=== PATIENT | female | born 1940 | race Caucasian/White ===

== ENCOUNTER 2018-12-22 08:27 | Day surgery (SDC) | payer MEDICARE, BC, SELFPAY ==
--- NOTE | 2018-12-21 18:54 | W.PIPPEYE ---
History of Present Illness Chief Complaint: Progressive decreased vision, right eye Narrative: The patient is a 78-year old lady who presented with complaints of progressive decreased vision in both eyes at both distance and near, particularly at near. She has significant difficulty with fine print. On examination she was noted to have moderate bilateral nuclear and posterior subcapsular cataract with cortical cataract in the left eye as well. The option of cataract surgery was offered to the patient and she felt she was symptomatic enough that she wished to proceed. NOTE: The Chief Complaint, HPI, Past Medical History, Past Surgical History, Family History, Social History, Medications, and complete Ophthalmic Exam with detailed Assessment and Plan have already been documented in the patient's outpatient ophthalmic record and are not covered again in detail here. FORMERLY [facility] Medical History Cortical cataract of right eye (Acute) Nuclear sclerotic cataract of right eye (Acute) Posterior subcapsular age-related cataract, right eye (Acute) Social History Smoking and Tabacco status: Former Tobacco Use Meds Home Medications Medication Instructions Recorded Confirmed Type acetaminophen [Tylenol] 650 mg PO TID PRN 12/19/18 12/19/18 History ascorbic acid (vitamin C) [Vitamin 500 mg PO DAILY 12/19/18 12/19/18 History C] aspirin 325 mg PO DAILY 12/19/18 12/19/18 History atorvastatin 20 mg PO DAILY 12/19/18 12/19/18 History calcium carbonate-vitamin D3 1 tab PO BID 12/19/18 12/19/18 History [Calcium 600 with Vitamin D3] cholecalciferol (vitamin D3) 2 tab PO DAILY 12/19/18 12/19/18 History [Vitamin D3] citalopram 20 mg PO HS 12/19/18 12/19/18 History cyanocobalamin (vitamin B-12) 500 mcg PO .3X A WEEK 12/19/18 12/19/18 History [Vitamin B-12] desloratadine [Clarinex] 5 mg PO DAILY 12/19/18 12/19/18 History donepezil [Aricept] 10 mg PO DAILY 12/19/18 12/19/18 History fluticasone propionate [Flovent 1 puff INHALATION BID 12/19/18 12/19/18 History HFA] lisinopril 10 mg PO DAILY 12/19/18 12/19/18 History lysine [L-Lysine] 500 mg PO DAILY 12/19/18 12/19/18 History nitroglycerin [Nitrostat] 1 tab SUBLINGUAL DIRECTED PRN 12/19/18 12/19/18 History omeprazole 20 mg PO DAILY 12/19/18 12/19/18 History psyllium husk [Metamucil] 1 tsp PO DAILY 12/19/18 12/19/18 History pyridoxine (vitamin B6) [Vitamin 100 mg PO . 3X A WEEK 12/19/18 12/19/18 History B-6] thiamine HCl (vitamin B1) [Vitamin 100 mg PO .3X A WEEK 12/19/18 12/19/18 History B-1] vitamin E 200 unit PO DAILY 12/19/18 12/19/18 History zinc 50 mg PO DAILY 12/19/18 12/19/18 History Allergies Allergy/AdvReac Type Severity Reaction Status Date / Time No Known Allergies Allergy Unverified 12/19/18 10:57 Exam OCULAR EXAM:: Most recent ocular examination revealed corrected visual acuity of 20/25 OD, 20/20 OS. Intraocular pressure is 15 OD, 13 OS. Pupils equal, round, and reactive without afferent pupillary defect slit-lamp examination is significant for pupils dilating to 4 mm OU. 2+ nuclear with 1+ cortical haze OU and 2+ posterior subcapsular cataract OU. Dilated funduscopic examination shows disc cupping of 0.45 OD 0.5 OS with normal vessels. There are some macular pigmentary changes in the right eye with small branch vein occlusion adjacent to the foveal center in the right eye. Rare drusen are present in the left eye. Peripheral retina and vitreous are normal. BRIGHTNESS ACUITY TESTING (BAT):: Brightness acuity testing of the right eye off is 20/25. Low is 20/40. Medium is 20/40. High is 20/40. Assessment and Plan (1) Posterior subcapsular age-related cataract, right eye: Current visit: No Status: Acute Assessment: Visually significant cataract, right eye. Plan: Cataract extraction with intraocular lens implantation, right eye (2) Nuclear sclerotic cataract of right eye: Current visit: No Status: Acute Assessment: Visually significant cataract, right eye. Plan: Cataract extraction with intraocular lens implantation, right eye (3) Cortical cataract of right eye: Current visit: No Status: Acute Assessment: Visually significant cataract, right eye. Plan: Cataract extraction with intraocular lens implantation, right eye Note: NOTE:: The details of the planned surgery, including the risks, indications,limitations,expectations,outcome and possible complications were explained to the patient. The patient understands the complications including, but not limited to: infection, hemorrhage, posterior dislocation of the lens or nuclear fragments which may require the intervention of a vitreoretinal surgeon, possible loss of the eye, or from anesthetic complications. The patient has been made aware of the option of not having surgery, that vision following surgery may not be equal to that prior to surgery, and that the planned surgery may not achieve the intended results. Following this discussion, which the patient appeared to understand, the patient wishes to proceed with cataract surgery with lens implantation of the affected eye to improve and maximize vision.
--- NOTE | 2018-12-22 07:10 | ROE_ITS ---
Date of service: 12/22/18 Time of Service: 08:50 Operative Note PRE-OP DIAGNOSIS: Cataract, right eye, with poorly dilating pupil POST-OP DIAGNOSIS: same PROCEDURE: 1. Cataract extraction by phacoemulsification with intraocular lens implantation, right eye, with pupillary expansion device SURGEON: Abdirahman Bonilla ANESTHESIA: MAC (with local sub-tenon's anesthetic injection) PATHOLOGY: none sent COMPLICATIONS: None Patient was transported to: same day Patient's condition: stable Implants: [employer] / [employer] Tecnis [id number] Indications: Progressive decreased vision due to cataract, right eye, with poorly dilating pupil Procedure Description: CATARACT SURGERY OPERATIVE REPORT PREOPERATIVE DIAGNOSIS: 1. Nuclear/cortical/posterior subcapsular cataract, right eye 2. Poorly dilating pupil, right eye POSTOPERATIVE DIAGNOSIS: Same OPERATION: 1. Cataract extraction using phacoemulsification with posterior chamber intraocular lens implant, right eye. 2. Pupillary dilation and iris stabilization using Malyugin Ring IOL: IOL [place] Machine Operator/Model: [employer] / DEJAH Tecnis [id number] IOL Power: + 18.50 diopters IOL Serial Number: [id number] Optic Diameter: 6.0mm Haptic/Overall Diameter: 13.0mm PHACO INFO: Joe CrownPeakurion Vision System with OZil and Active Fluidics Cumulative Dispersed Energy (CDE): 10.21 seconds SURGEON: Abdirahman Bonilla MD, SHELDON ANESTHESIA: Monitored Anesthesia Care (MAC), with local sub-tenon's anesthetic infiltration COMPLICATIONS: None SPECIMENS: None INDICATIONS FOR PROCEDURE: The patient is a 78-year old lady with history of diminished visual acuity in her right eye. She is noted to have a significant nuclear cortical and posterior subcapsular cataract in the right eye. The option of cataract surgery was offered to the patient and she wished to proceed. PROCEDURE: The correct surgical eye was identified and marked as the right eye and the pupil was dilated in the preoperative area using mydriatics and cycloplegics. The dilated pupil size was 4.5 mm. No oral sedation was given. The patient was brought to the operating room where cardiopulmonary monitoring was instituted and surgical time-out was performed, confirming the correct operative eye and IOL power. Topical anesthesia was administered and ophthalmic povidone-iodine 5% was instilled into the conjunctival fornices. Lidocaine gel was applied to the cornea and the carmen-ocular area was prepped with Betadine 10% solution and draped in the usual sterile fashion for intraocular surgery, including an aperture drape. A Tegaderm transparent film dressing was cut in half and used to cover the lashes and lid margins. Care was taken to sequester the lashes and lid margins under the Tegaderm dressing. A lid speculum was placed between the lids of the operative eye and the Lizette-Wendi operating microscope was maneuvered into position. Elfego scissors were then used to make a conjunctival buttonhole approximately 6mm posterior to the limbus in the inferonasal quadrant. Blunt dissection was carried out to expose bare sclera, and a blunt-tipped sub-tenon?s anesthesia cannula was introduced and passed posteriorly along the globe where non- preserved plain lidocaine was injected into posterior sub-Tenon?s space. A sideport knife was used to make a paracentesis port inferiortemporally. The anterior chamber was filled with Healon GV. A 2.4mm keratome knife was used to create a half-thickness groove at the limbus and then to construct a three-plane near-clear corneal tunnel extending 2.0mm into clear cornea superiortemporally. A 7.0 mm Malyugin Ring was then inserted into the pupillary space and engaged with the Kuglen hook. A flap was raised on the anterior capsule and capsulorhexis forceps were used to complete a continuous curvilinear capsulorhexis of 4.5 mm. There was a significant cortical haze inferiorly. The zonules were noted to be quite loose. Balanced salt solution was then used to perform cortical cleaving hydrodissection and nuclear hydrodelineation until the lens could be freely rotated within the capsular bag. The lens nucleus was then disassembled and removed within the capsular bag and iris plane using phacoemulsification. Residual cortical material was removed using the 45-degree angled silicone I/A tip with 0.3mm port. The posterior capsule was carefully polished to remove as much residual lens epithelial cells as safely possible. The capsular bag was then inflated and the anterior chamber deepened with viscoelastic. The lens implant described above was inserted into the capsular bag using the DEJAH [place] Injector. A Kuglen hook was used to dial the IOL into position. The Malyugin Ring was removed in the reverse order of its insertion. Residual viscoelastic was then removed first from posterior to the IOL, then from the anterior chamber using the I/A handpiece. The lens implant was noted to center nicely within the capsular bag. The incisions were stromally hydrated, and the anterior chamber was reformed using BSS. Then 0.4cc of moxifloxacin 1.5mg/ml were injected into the capsular bag and anterior chamber. The incisions were checked with a Weck spear and found to be secure. Several drops of ophthalmic povidone-iodine 5% were then applied to the eye followed by two drops of Imprimis combination moxifloxacin/dexamethasone solution. The drapes were removed and a clear plastic protective eye shield was placed over the eye. The patient was then returned to Same Day Surgery in stable condition.
--- NOTE | 2018-12-22 07:10 | PDOC.DSDIS_ITS ---
Discharge Plan Disposition Patient Disposition: HOME Condition: Good Discharge Details Attending Provider: Abdirahman Bonilla Primary Care Provider: Dory Renee Home Meds and New Rx's Prescriptions: No Action acetaminophen [Tylenol] 325 mg Tablet 650 mg PO TID PRNRF: 0 atorvastatin 20 mg Tablet 20 mg PO DAILY RF: 0 aspirin 325 mg Tablet 325 mg PO DAILY RF: 0 donepezil [Aricept] 10 mg Tablet 10 mg PO DAILY RF: 0 thiamine HCl (vitamin B1) [Vitamin B-1] 100 mg Tablet 100 mg PO .3X A WEEK RF: 0 citalopram 20 mg Tablet 20 mg PO HS RF: 0 cyanocobalamin (vitamin B-12) [Vitamin B-12] 500 mcg Tablet 500 mcg PO .3X A WEEK RF: 0 desloratadine [Clarinex] 5 mg Tablet 5 mg PO DAILY RF: 0 lisinopril 10 mg Tablet 10 mg PO DAILY RF: 0 nitroglycerin [Nitrostat] 0.4 mg Tablet, Sublingual 1 tab Sublingual DIRECTED PRNRF: 0 omeprazole 20 mg Capsule,Delayed Release(Dr/Ec) 20 mg PO DAILY RF: 0 pyridoxine (vitamin B6) [Vitamin B-6] 100 mg Tablet 100 mg PO . 3X A WEEK RF: 0 Flovent HFA 110 mcg/actuation Hfa Aerosol Inhaler 1 puff INHALATION BID RF: 0 cholecalciferol (vitamin D3) [Vitamin D3] 1,000 unit Capsule 2 tab PO DAILY RF: 0 calcium carbonate-vitamin D3 [Calcium 600 with Vitamin D3] 600 mg(1,500mg) - 400 unit Capsule 1 tab PO BID RF: 0 Metamucil 3.4 gram/5.4 gram Powder 1 tsp PO DAILY RF: 0 vitamin E 200 unit Capsule 200 unit PO DAILY RF: 0 ascorbic acid (vitamin C) [Vitamin C] 500 mg Tablet 500 mg PO DAILY RF: 0 zinc 50 mg Tablet 50 mg PO DAILY RF: 0 lysine [L-Lysine] 500 mg Tablet 500 mg PO DAILY RF: 0 Discharge Instructions Stand Alone Forms: Post-op Topical Cataract, Press Ganey (DSU) Discharge Orders Discharge Orders: Discharge Order (Routine); Ordered 12/22/18 Ordered By: Abdirahman Bonilla DS: Diagnosis Discharge Diagnosis (1) Status post cataract extraction and insertion of intraocular lens of right eye: Status: Chronic
[2018-12-22 07:33] VITALS: BP 155/73; PULSE 60; RESP 16; TEMP 36; O2SAT 100
[2018-12-22] MEDS: Tetracaine 0.5% 4 ML BTL OD ×4 (07:35→08:15)
[2018-12-22] MEDS: Tropicam./Phenyleph. (1/2.5%) 5 ML BTL OD ×3 (07:35→07:42)
[2018-12-22] MEDS: Lidocaine 2% Jelly 6 ML SYR (08:15)
[2018-12-22] MEDS: Lidocaine 1% Pres-Free 5 ML VIAL (08:15)
[2018-12-22] MEDS: Povidone-Iodine Ophth 30 ML BTL (08:15)
[2018-12-22] MEDS: Balanced Salt Soln.-PLUS 500 ML BAG (08:22)
== END 2018-12-22 09:28 | disposition home or self-care (01) ==
LOC: SUR 08:27
PROVIDERS: Visit Provider Ophthalmology
PROC: (CPT 66982; principal; 2018-12-22 08:45)
DX: H25.811 Combined forms of age-related cataract, right eye (principal); H57.09 Other anomalies of pupillary function; I10 Essential (primary) hypertension; K21.9 Gastro-esophageal reflux disease without esophagitis
CPT/HCPCS: 66982; V2632

== ENCOUNTER 2019-01-05 07:40 | Day surgery (SDC) | payer MEDICARE, BC, SELFPAY ==
--- NOTE | 2019-01-04 12:17 | POEE_ITS ---
History of Present Illness Chief Complaint: Progressive decreased vision, left eye Narrative: The patient is a 78-year-old lady with history of progressive decreased vision at near in both eyes. She was noted to have moderate nuclear cortical and posterior subcapsular cataract of the right eye with nuclear and co rtical cataract of the left eye. She was significantly symptomatic that she desired cataract surgery which was performed OD on 12/22/2018. Postoperatively she has regained uncorrected vision of 20/20 in the right eye. She now presents for cataract surgery in the left eye. NOTE: The Chief Complaint, HPI, Past Medical History, Past Surgical History, Family History, Social History, Medications, and complete Ophthalmic Exam with detailed Assessment and Plan have already been documented in the patient's outpatient ophthalmic record and are not covered again in detail here. PFSH Medical History Nuclear sclerotic cataract of left eye (Acute) Cortical cataract of left eye (Acute) Cortical cataract of right eye (Resolved) Nuclear sclerotic cataract of right eye (Resolved) Posterior subcapsular age-related cataract, right eye (Resolved) Surgical History Status post cataract extraction and insertion of intraocular lens of right eye (Chronic 12/22/18) Social History Smoking/Tobacco Use Status: Former Tobacco Use Drug use: Never Meds Home Medications Medication Instructions Recorded Confirmed Type acetaminophen [Tylenol] 650 mg PO TID PRN 12/19/18 12/19/18 History ascorbic acid (vitamin C) [Vitamin 500 mg PO DAILY 12/19/18 12/22/18 History C] aspirin 325 mg PO DAILY 12/19/18 12/22/18 History atorvastatin 20 mg PO DAILY 12/19/18 12/22/18 History calcium carbonate-vitamin D3 1 tab PO BID 12/19/18 12/22/18 History [Calcium 600 with Vitamin D3] cholecalciferol (vitamin D3) 2 tab PO DAILY 12/19/18 12/22/18 History [Vitamin D3] citalopram 20 mg PO HS 12/19/18 12/22/18 History cyanocobalamin (vitamin B-12) 500 mcg PO .3X A WEEK 12/19/18 12/22/18 History [Vitamin B-12] desloratadine [Clarinex] 5 mg PO DAILY 12/19/18 12/22/18 History donepezil [Aricept] 10 mg PO DAILY 12/19/18 12/22/18 History fluticasone propionate [Flovent 1 puff INHALATION BID 12/19/18 12/22/18 History HFA] lisinopril 10 mg PO DAILY 12/19/18 12/22/18 History lysine [L-Lysine] 500 mg PO DAILY 12/19/18 12/22/18 History nitroglycerin [Nitrostat] 1 tab SUBLINGUAL DIRECTED PRN 12/19/18 12/22/18 History omeprazole 20 mg PO DAILY 12/19/18 12/22/18 History psyllium husk [Metamucil] 1 tsp PO DAILY 12/19/18 12/22/18 History pyridoxine (vitamin B6) [Vitamin 100 mg PO . 3X A WEEK 12/19/18 12/22/18 History B-6] thiamine HCl (vitamin B1) [Vitamin 100 mg PO .3X A WEEK 12/19/18 12/22/18 History B-1] vitamin E 200 unit PO DAILY 12/19/18 12/22/18 History zinc 50 mg PO DAILY 12/19/18 12/22/18 History Allergies Allergy/AdvReac Type Severity Reaction Status Date / Time erythromycin base Allergy Verified 12/22/18 07:21 Penicillins Allergy Verified 12/22/18 07:21 tetracycline Allergy Verified 12/22/18 07:21 Exam OCULAR EXAM:: Most recent ocular examination is significant for uncorrected vision of 20/20 OD, corrected vision of 20/30 OS. Intraocular pressure is 16 OD, 13 OS extraocular motility is normal. Pupils equal, round, and reactive without afferent pupillary defect slit-lamp examination his significant for a well-positioned PCIOL OD with clear posterior capsule. A 2+ nuclear and 1+ cortical is present in the left eye. Dilated funduscopic examination shows disc cupping of 0.45 OD 0.5 OS with normal vessels. There is some RPE changes in the right macula, and drusen in the left macula. Peripheral retina and vitreous is normal OU. BRIGHTNESS ACUITY TESTING (BAT):: Brightness acuity testing of the left eye off is 20/25. Low, medium, and high is 20/40. Assessment and Plan (1) Cortical cataract of left eye: Current visit: No Status: Acute Assessment: Visually significant cataract, left eye. Plan: Cataract extraction with intraocular lens implantation, left eye (2) Nuclear sclerotic cataract of left eye: Current visit: No Status: Acute Assessment: Visually significant cataract, left eye. Plan: Cataract extraction with intraocular lens implantation, left eye Note: NOTE:: The details of the planned surgery, including the risks, indications,limitations,expectations,outcome and possible complications were explained to the patient. The patient understands the complications including, but not limited to: infection, hemorrhage, posterior dislocation of the lens or nuclear fragments which may require the intervention of a vitreoretinal surgeon, possible loss of the eye, or from anesthetic complications. The patient has been made aware of the option of not having surgery, that vision following surgery may not be equal to that prior to surgery, and that the planned surgery may not achieve the intended results. Following this discussion, which the patient appeared to understand, the patient wishes to proceed with cataract surgery with lens implantation of the affected eye to improve and maximize vision.
[2019-01-05 07:57] VITALS: BP 151/81; PULSE 60; RESP 16; TEMP 36.5; O2SAT 98
[2019-01-05] MEDS: Tropicam./Phenyleph. (1/2.5%) 5 ML BTL OS ×3 (08:07→08:20)
[2019-01-05] MEDS: Tetracaine 0.5% 4 ML BTL OS ×4 (08:07→09:40)
[2019-01-05] MEDS: Povidone-Iodine Ophth 30 ML BTL (09:40)
[2019-01-05] MEDS: Balanced Salt Soln.-PLUS 500 ML BAG (09:40)
[2019-01-05] MEDS: Lidocaine 1% Pres-Free 5 ML VIAL (09:40)
[2019-01-05] MEDS: Lidocaine 2% Jelly 6 ML SYR (09:40)
--- NOTE | 2019-01-05 10:08 | PDOC.DSDIS_ITS ---
Discharge Plan Disposition Patient Disposition: HOME Condition: Stable Discharge Details Attending Provider: Abdirahman Bonilla Primary Care Provider: Dory Renee Home Meds and New Rx's Prescriptions: No Action acetaminophen [Tylenol] 325 mg Tablet 650 mg PO TID PRNRF: 0 atorvastatin 20 mg Tablet 20 mg PO DAILY RF: 0 aspirin 325 mg Tablet 325 mg PO DAILY RF: 0 donepezil [Aricept] 10 mg Tablet 10 mg PO DAILY RF: 0 thiamine HCl (vitamin B1) [Vitamin B-1] 100 mg Tablet 100 mg PO .3X A WEEK RF: 0 citalopram 20 mg Tablet 20 mg PO HS RF: 0 cyanocobalamin (vitamin B-12) [Vitamin B-12] 500 mcg Tablet 500 mcg PO .3X A WEEK RF: 0 desloratadine [Clarinex] 5 mg Tablet 5 mg PO DAILY RF: 0 lisinopril 10 mg Tablet 10 mg PO DAILY RF: 0 nitroglycerin [Nitrostat] 0.4 mg Tablet, Sublingual 1 tab Sublingual DIRECTED PRNRF: 0 omeprazole 20 mg Capsule,Delayed Release(Dr/Ec) 20 mg PO DAILY RF: 0 pyridoxine (vitamin B6) [Vitamin B-6] 100 mg Tablet 100 mg PO . 3X A WEEK RF: 0 Flovent HFA 110 mcg/actuation Hfa Aerosol Inhaler 1 puff INHALATION BID RF: 0 cholecalciferol (vitamin D3) [Vitamin D3] 1,000 unit Capsule 2 tab PO DAILY RF: 0 calcium carbonate-vitamin D3 [Calcium 600 with Vitamin D3] 600 mg(1,500mg) - 400 unit Capsule 1 tab PO BID RF: 0 Metamucil 3.4 gram/5.4 gram Powder 1 tsp PO DAILY RF: 0 vitamin E 200 unit Capsule 200 unit PO DAILY RF: 0 ascorbic acid (vitamin C) [Vitamin C] 500 mg Tablet 500 mg PO DAILY RF: 0 zinc 50 mg Tablet 50 mg PO DAILY RF: 0 lysine [L-Lysine] 500 mg Tablet 500 mg PO DAILY RF: 0 Discharge Instructions Stand Alone Forms: Post-op Topical Cataract, Jorge Davidey (DSU) Discharge Orders Discharge Orders: Discharge Order (Routine); Ordered 01/05/19 Ordered By: Abdirahman Bonilla DS: Diagnosis Discharge Diagnosis (1) Cortical cataract of left eye: Status: Resolved (2) Nuclear sclerotic cataract of left eye: Status: Resolved (3) Status post cataract extraction and insertion of intraocular lens of left eye: Status: Chronic
--- NOTE | 2019-01-05 10:09 | W.PM.OP ---
Date of service: 01/05/19 Time of Service: 10:09 Operative Note PRE-OP DIAGNOSIS: Cataract, left eye POST-OP DIAGNOSIS: same PROCEDURE: Cataract extraction using phacoemulsification with intraocular lens implant, left eye SURGEON: Abdirahman Bonilla ANESTHESIA: MAC and local (sub-tenon's anesthetic infiltration) PATHOLOGY: none sent COMPLICATIONS: None Patient was transported to: same day Patient's condition: stable Implants: [employer] / [employer] Tecnis ZCB00 Indications: Progressive decreased vision due to cataract, left eye Procedure Description: CATARACT SURGERY OPERATIVE REPORT PREOPERATIVE DIAGNOSIS: Nuclear/cortical cataract, left eye POSTOPERATIVE DIAGNOSIS: Same OPERATION: Cataract extraction using phacoemulsification with posterior chamber intraocular lens implant, left eye. 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 She has already undergone cataract surgery in her right eye on 12/22/2018 and is doing well postoperatively. She now presents for cataract surgery of the left eye. PROCEDURE: The correct surgical eye was identified and marked as the left eye and the pupil was dilated in the preoperative area using mydriatics and cycloplegics. The dilated pupil size was 7.0 mm. No sedation was given. The patient was brought to the operating room where cardiopulmonary monitoring was instituted and surgical time-out was performed, confirming the correct operative eye and IOL power. Topical anesthesia was administered and ophthalmic povidone-iodine 5% was instilled into the conjunctival fornices. Lidocaine gel was applied to the cornea and the carmen-ocular area was prepped with Betadine 10% solution and draped in the usual sterile fashion for intraocular surgery, including an aperture drape. A Tegaderm transparent film dressing was cut in half and used to cover the lashes and lid margins. Care was taken to sequester the lashes and lid margins under the Tegaderm dressing. A lid speculum was placed between the lids of the operative eye and the Lizette-Wendi operating microscope was maneuvered into position. Elfego scissors were then used to make a conjunctival buttonhole approximately 6mm posterior to the limbus in the inferonasal quadrant. Blunt dissection was carried out to expose bare sclera, and a blunt-tipped sub-tenon?s anesthesia cannula was introduced and passed posteriorly along the globe where non-preserved plain lidocaine was injected into posterior sub-Tenon?s space. A sideport knife was used to make a paracentesis port superior/superiortemporal, and the anterior chamber was filled with Healon GV. A 2.4mm keratome knife was used to create a half-thickness groove at the limbus and then to construct a three-plane near-clear corneal tunnel extending 2.0mm into clear cornea in the temporal position. . A flap was raised on the anterior capsule and capsulorhexis forceps were used to complete a continuous curvilinear capsulorhexis of 5.0 mm. Balanced salt solution was then used to perform cortical cleaving hydrodissection and nuclear hydrodelineation until the lens could be freely rotated within the capsular bag. The lens nucleus was then disassembled and removed within the capsular bag and iris plane using phacoemulsification. Residual cortical material was removed using the 45-degree angled silicone I/A tip with 0.3mm port. The posterior capsule was carefully polished to remove as much residual lens epithelial cells as safely possible. The capsular bag was then inflated and the anterior chamber deepened with viscoelastic. The lens implant described above was inserted into the capsular bag using the DEJAH Kingston Injector. A Kuglen hook was used to dial the IOL into position. Residual viscoelastic was then removed first from posterior to the IOL, then from the anterior chamber using the I/A handpiece. The lens implant was noted to center nicely within the capsular bag. The incisions were stromally hydrated, and the anterior chamber was reformed using BSS. Then 0.4cc of moxifloxacin 1.5mg/ml were injected into the capsular bag and anterior chamber. The incisions were checked with a Weck spear and found to be secure. Several drops of ophthalmic povidone-iodine 5% were then applied to the eye followed by two drops of Imprimis combination moxifloxacin/dexamethasone solution. The drapes were removed and a clear plastic protective eye shield was placed over the eye. The patient was then returned to [facility] in stable condition.
== END 2019-01-05 10:44 | disposition home or self-care (01) ==
PROVIDERS: Visit Provider Ophthalmology
PROC: (CPT 66984; principal; 2019-01-05 09:45)
DX: H25.812 Combined forms of age-related cataract, left eye (principal); Z98.41 Cataract extraction status, right eye; Z96.1 Presence of intraocular lens; I10 Essential (primary) hypertension; K21.9 Gastro-esophageal reflux disease without esophagitis
CPT/HCPCS: 66984; V2632

== ENCOUNTER 2021-12-09 00:35 | Outpatient (CLI) | payer MEDICARE, BC, SELFPAY ==
--- NOTE | 2021-12-09 07:00 | DI.US_ITS ---
Exam(s) US THYROID EXAM: US THYROID CLINICAL HISTORY: THYROID NODULE,E04.1, ASSESS FOR STABILITY. TECHNIQUE: Ultrasound thyroid performed using standard protocol. COMPARISON: US US THYROID from 07/10/2019 [facility]. FINDINGS: ISTHMUS: 3 mm RIGHT LOBE: Size: 4.4 x 1.4 x 1.6 cm Echogenicity: Mildly heterogeneous. . Vascularity: Normal. Nodules: A subtle lesion is again noted near the lower pole of the right which is measured on today's exam it at 7 x 9 by 10 millimeters. It is solid, hypoechoic, ill-defined, no echogenic foci. Mildl y increase in size from previous exam. LEFT LOBE: Size: 3.9 x 1.1 x 1.1 cm Echogenicity: Normal. Vascularity: Normal. Nodules: 1.5 x 1.1 x 1.1 centimeter ovoid, solid hypoechoic nodule with smooth margins and punctate c alcifications upper pole left lobe. This has increased mildly in size from prior exam. Seven point s, TI-RADS 5. OTHER FINDINGS: None. IMPRESSION: Increase in size of previously noted nodule upper pole left lobe,TI-RADS category 5.. FNA recommende d for further evaluation.. Mild increase in size of right nodule now 10 millimeters. Continued follow-up is recommended. TI- r ads 4. DATA REPOSITORY:
== END 2021-12-09 00:55 ==
PROVIDERS: PCP Nurse Practitioner Family; Visit Provider Otolaryngology
DX: E04.1 Nontoxic single thyroid nodule (principal); R91.1 Solitary pulmonary nodule
CPT/HCPCS: 76536